=== PATIENT | female | born 2000 | race Caucasian/White ===

== ENCOUNTER 2025-04-12 15:00 | Emergency (ER) | payer MEDICAID ==
[~2025-04-12] VITALS: Wt 74.4 kg
[2025-04-12] MEDS ORDERED: CORTIZONE-1028 GM T (16:09)
[2025-04-12] MEDS ORDERED: HYDROCORTISONE 1% 28 GM TUBE T ONE (16:10)
== END 2025-04-12 16:21 | disposition home or self-care (01) ==
LOC: ED 15:00
DX: L25.9 Unspecified contact dermatitis, unspecified cause (principal)